=== PATIENT | male | born 1985 | race Caucasian/White ===

== ENCOUNTER 2020-10-19 22:32 | Emergency (ER) | payer BC, SELFPAY ==
[2020-10-19 22:35] VITALS: BP 149/77; PULSE 68; RESP 18; TEMP 37; O2SAT 98; BMI 45.6
[2020-10-20] VITALS: BP 145/95; PULSE 73; RESP 20; TEMP 36.6; O2SAT 97
[2020-10-20] MEDS: Lidocaine 4 % Patch ADH..PATCH 1 PATCH TRANSDERMA (02:31)
[2020-10-20] MEDS: Ketorolac Tromethamine 15 MG/ML VIAL IM (02:31)
[2020-10-20] MEDS: Acetaminophen 325 MG TABLET 975 MG PO (02:31)
[2020-10-20 02:45] LABS: Appearance Urine CLEAR; Color Urine DARK YELLOW; Glucose Urine UA NEG (NEG); Leukocyte Esterase Urine NEG (NEG); Nitrite Urine NEG (NEG); PH 5.5 (5.0-8.0); Specific Gravity - Urine >= 1.030 (1.005-1.025); Urine Blood TRACE (NEG); Urine Ketones NEG (NEG); Urine Protein NEG (NEG-TRACE)
--- NOTE | 2020-10-20 02:46 | ED_ITS ---
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 this afternoon. He denies any radiation into either lower extremity, denies any bowel or bladder dysfunction, denies any saddle anesthesia, and denies any fevers/chills or urinary symptoms. Related Data Previous Rx's Medication Instructions Recorded cyclobenzaprine 10 mg PO BEDTIME PRN #3 tab 10/20/20 ketorolac 10 mg PO Q6H PRN 5 Days #20 tab 10/20/20 Allergies Allergy/AdvReac Type Severity Reaction Status Date / Time No Known Allergies Allergy Unverified 03/26/20 19:30 [No Known Allergies*] Review of Systems Review of Systems: Pertinent positives and negatives as stated in HPI 10 point review of systems is otherwise negative. PMFSH Past Medical History Source: nursing notes reviewed Medical History Obese Social History Social History Alcohol intake: never Smoking Status: Never smoker Use of substances other than those prescribed or required for medical reasons: No Advance Directives: No Physical Exam Vital Signs: Vital Signs: Last Vital Signs Temp 97.9 F 10/20/20 00:00 Pulse 73 10/20/20 00:00 Resp 20 10/20/20 00:00 BP 145/95 H 10/20/20 00:00 Pulse Ox 97 10/20/20 00:00 Body Mass Index 45.6 VITAL SIGNS: Reviewed. GENERAL: Well developed, well nourished, in no acute distress. HEAD: Normocephalic/atraumatic OROPHARYNX: no oral lesions noted, posterior pharynx clear NECK: Supple, no adenopathy LUNGS: Normal breath sounds. No adventitious sounds or accessory muscle use. SpO2<97> CARDIOVASCULAR: Regular rate and rhythm without noted murmurs ABDOMEN: Soft, non-tender, non-distended with bowel sounds. BACK: Muscle spasm noted to left paraspinal, otherwise neurovascularly intact in left lower extremity, no midline vertebral tenderness on palpation NEUROLOGIC: Alert and oriented x 4. Strength and sensation to light touch were grossly intact x 4. Course Course Course Narrative: 35-year-old male with history and clinical presentation consistent with lower back strain and subsequent spasm and low clinical suspicion for renal colic, UTI and a no supporting evidence to suggest cauda equina. Patient provided with combination analgesics and will be re-evaluated. And on re-evaluation patient has had modest improvement of his symptoms. Patient was reassured that he would need to continue with his treatment as well as following up with his primary care provider for re-evaluation and assessment for possible physical therapy should his symptoms persist. MDM - Back Pain/Injury Lab Data Labs: Lab Results 10/20/20 Range/Units 02:37 Urine Color DARK YELLOW Urine Appearance CLEAR Urine pH 5.5 (5.0-8.0) Ur Specific [place] >= 1.030 H (1.005-1.025) Urine Protein NEG (NEG-TRACE) MG/DL Urine Glucose (UA) NEG (NEG) MG/DL Urine Ketones NEG (NEG) MG/DL Urine Blood TRACE (NEG) Urine Nitrite NEG (NEG) Ur Leukocyte Esterase NEG (NEG) Urine RBC 0-2 (0) /HPF Urine WBC 1-4 (0-4) /HPF Ur Squamous Epith Cells 2+ /LPF Urine Bacteria NONE /LPF Urine Mucus 2+ /LPF Discharge Plan Discharge Clinical Impression: Muscle strain, Muscle spasm Patient Disposition: Home, Self-Care Instructions: Muscle Strain (ED), Muscle Spasm (ED) Additional Instructions: 1. Tylenol 1000 mg, por v?a oral, cada 6 horas seg?n sea necesario para controlar el dolor. No exceda los 4000 mg en 24 horas. 2. Parche de lidoca?na, estos est?n disponibles en todos los [facility], apl?quelo en el ?aissatou de m?xima sensibilidad ariana se indica en el empaque exterior. 3. Anum un seguimiento con mello proveedor de atenci?n primaria en los pr?ximos 2-3 d?as para kait reevaluaci?n. No dude en regresar al departamento de emergencias si desarrolla cualquier empeoramiento margaret de angelina s?ntomas que incluya dolor / ardor al orinar o fiebre / escalofr?os. Prescriptions: New ketorolac 10 mg tablet 10 mg PO Q6H PRN (Reason: pain) 5 Days Qty: 20 RF: 0 cyclobenzaprine 10 mg tablet 10 mg PO BEDTIME PRN (Reason: muscle spasm) Qty: 3 RF: 0 Referrals: Physician,None [Primary Care Provider] - 2 days Stand Alone Forms: Work/School Release Print Language: Syrian
[2020-10-20 02:51] LABS: Mucus Urine 2+ /LPF; RBC Urine 0-2 /HPF (0); Squamous Epithelial Cell Urine 2+ /LPF
== END 2020-10-20 04:12 | disposition home or self-care (01) ==
PROVIDERS: Emergency Provider Student in an Organized Health Care Education/Training Program
DX: M62.830 Muscle spasm of back (principal); S39.012A Strain of muscle, fascia and tendon of lower back, initial encounter; X50.0XXA Overexertion from strenuous movement or load, initial encounter; Y93.89 Activity, other specified; Y92.59 Other trade areas as the place of occurrence of the external cause; Y99.0 Civilian activity done for income or pay
CPT/HCPCS: 81001; 96372; 99284; J1885

== ENCOUNTER 2021-03-23 07:44 | Emergency (ER) | payer OTHER, BC, SELFPAY ==
--- NOTE | ~2021-03-23 | XR_ITS ---
EXAMINATION: XR ELBOW, RIGHT CLINICAL INFORMATION: Lifting injury COMPARISON: None TECHNIQUE: AP, lateral, and oblique views of the right elbow. FINDINGS: Bone alignment is normal. No fracture or dislocation is seen. There is question of a small osteophyte versus soft tissue or capsular ossification adjacent to the medial proximal ulna. Joint spaces are otherwise normal. There is no joint effusion. XR/XR elbow RT min 3V IMPRESSION: No acute findings. Question small osteophyte adjacent to the proximal medial ulna.
--- NOTE | ~2021-03-23 | US_ITS ---
EXAMINATION: ULTRASOUND EXTREMITY NONVASCULAR CLINICAL INFORMATION: Question right biceps rupture COMPARISON: None TECHNIQUE: Grayscale and color imaging of the right distal upper arm and proximal forearm. FINDINGS: No fluid collection in or around the biceps muscle or tendon is appreciated. US/US extremity nonvascular IMPRESSION: No abnormality evident by ultrasound.
[2021-03-23 08:32] VITALS: BP 151/74; PULSE 77; RESP 18; TEMP 36.2; O2SAT 99; BMI 47.0
[2021-03-23] MEDS: Ibuprofen 800 MG TABLET PO (10:06)
--- NOTE | 2021-03-23 11:07 | ED.UPPEXIN ---
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 He denies any paresthesias or any other symptoms complaints or injuries at this time. MD complaint: injury to: right, arm and elbow Onset (ago): minute(s) (Prior to arrival) Other injuries: none Place: work Severity: moderate Relieving factors: immobilization Exacerbating factors: other (Extension of the elbow joint) Context: other (Pull/lifting injury) Associated symptoms: denies other symptoms Related Data Previous Rx's Medication Instructions Recorded cyclobenzaprine 10 mg tablet 10 mg PO BEDTIME PRN #3 tab 10/20/20 ketorolac 10 mg tablet 10 mg PO Q6H PRN 5 Days #20 tab 10/20/20 diazepam 5 mg tablet (Valium) 5 mg PO TID PRN #14 tab 03/23/21 naproxen 500 mg tablet 500 mg PO BID PRN #10 tab 03/23/21 oxycodone 5 mg tablet 5 mg PO Q6H PRN #14 tab 03/23/21 Allergies Allergy/AdvReac Type Severity Reaction Status Date / Time No Known Allergies Allergy Verified 03/23/21 08:35 [No Known Allergies*] Review of Systems Review of Systems: Constitutional : No changes in activity, No lethargy, No recent prior head injury, No agitation, No increased fussiness ENT/Mouth : No Ear Pain, No Nasal discharge/drainage Eyes: No Eye Pain, No Swelling, No Redness, No Foreign Body, No Vision Changes Cardiovascular : No Chest Pain, No SOB Respiratory : No Cough Gastrointestinal : No Nausea, No Vomiting, No abdominal Pain Genitourinary : No Dysuria, No Urinary Frequency, No Urinary Incontinence, No Urgency, No Flank Pain Musculoskeletal : + joint pain, No neck stiffness, No back pain/injury Skin : No lacerations Neuro : No unsteady gait, No Paresthesias, No Loss of Consciousness, No altered mental status, No Headache Yes all other systems are reviewed and are negative [facility] Past Medical History Attestation statement: The following information was validated with the patient. Medical History Obese Social History Social History Alcohol intake: never Advance Directives: Yes Advance Directives Information Provided: Yes Advance Directives on File: No Physical Exam Vital Signs: Vital Signs: Last Vital Signs Temp 97.1 F 03/23/21 08:32 Pulse 77 03/23/21 08:32 Resp 18 03/23/21 11:15 BP 151/74 H 03/23/21 08:32 Pulse Ox 99 03/23/21 08:32 Body Mass Index 47.0 vital signs have been reviewed as normal and appeared to be correct. Blood pressure hypertensive 151/74. Heart rate normal. Respiration rate normal. Temperature normal. Oxygen saturation normal. Appearance: Alert. Oriented X3. No acute distress. Head: Normal external exam. Normocephalic. Atraumatic. Eyes: PERRLA. EOMI. Conjunctiva and sclera normal. Eyelids normal. ENT: Pharynx normal. Uvula midline. Moist mucous membranes. Neck: Normal inspection. Neck supple. FROM. No adenopathy. Thyroid Normal. No meningeal signs. No neck mass noted. CVS: Normal heart rate and rhythm. Heart sound normal. Pulses normal throughout. No murmurs/rales/gallops. Respiratory: No respiratory distress. Painless inspiration. Back: Full range of motion noted. No rashes/lesion/induration/fluctuance or signs of infection noted. Skin: Skin warm and dry. Normal skin color. Normal skin turgor. No rashes/lesions/lacerations noted. Extremities: Patient with tenderness to palpation to the right biceps joints at the distal long head aspect and he is unable to completely extend the elbow joint. Although flexion is within normal limits. No obvious ligamentous injury or biceps rupture on exam. Otherwise all other extremity exhibit normal range of motion and nontender. Neuro: Oriented X 3. No motor deficit. No sensory deficit. Reflexes normal. Normal steady gait. No focal neuro deficits noted. Vascular: + radial pulses Normal cap refill. No cyanosis noted to upper extremity nails Course Course Course Narrative: 35-year-old male presenting to the ED with complaints of right biceps pain after he was pulling pallets at work and since then has been having pain and unable to completely flex the elbow joint at the long head of the biceps. Although has full flexion. Therefore x-ray obtained an x-ray revealed no acute findings and the question a small osteophyte adjacent to the proximal medial ulna otherwise no other acute processes were noted. Ultrasound within normal limits they do not see any fluid collection in or around the biceps muscle or tendon. Therefore patient most likely a muscle strain. Will DC home with symptomatic treatment referral to orthopedic and to return if any new or worsening symptoms to follow up with primary care provider and [facility] for his job. Patient understands agrees with this plan. MDM - Extremity Injury (Upper) Medical Records Attestation: I reviewed the patient's medical records. Imaging Data Right elbow x-ray: Attestation: I personally reviewed and interpreted this imaging study as follows: Radiologist's impression: FINDINGS: Bone alignment is normal. No fracture or dislocation is seen. There is question of a small osteophyte versus soft tissue or capsular ossification adjacent to the medial proximal ulna. Joint spaces are otherwise normal. There is no joint effusion. XR/XR elbow RT min 3V IMPRESSION: No acute findings. Question small osteophyte adjacent to the proximal medial ulna. Biceps ultrasound: Attestation: I personally reviewed and interpreted this imaging study as follows: Radiologist's impression: FINDINGS: No fluid collection in or around the biceps muscle or tendon is appreciated.? US/US extremity nonvascular IMPRESSION: No abnormality evident by ultrasound.? Discharge Plan Discharge Clinical Impression: Elbow strain, Biceps muscle strain Patient Disposition: Home, Self-Care Instructions: Muscle Strain (ED) Prescriptions: New naproxen 500 mg tablet 500 mg PO BID PRN (Reason: pain) Qty: 10 RF: 0 diazepam [Valium] 5 mg tablet 5 mg PO TID PRN (Reason: muscle spasm) Qty: 14 RF: 0 oxycodone 5 mg tablet 5 mg PO Q6H PRN (Reason: pain) Qty: 14 RF: 0 No Action ketorolac 10 mg tablet 10 mg PO Q6H PRN (Reason: pain) 5 Days Qty: 20 RF: 0 cyclobenzaprine 10 mg tablet 10 mg PO BEDTIME PRN (Reason: muscle spasm) Qty: 3 RF: 0 Referrals: [facility] [Provider Group] - 1 day (from your job ) Stand Alone Forms: Work/School Release Print Language: Cambodian
[2021-03-23 11:15] VITALS: RESP 18
== END 2021-03-23 11:44 | disposition home or self-care (01) ==
PROVIDERS: Emergency Provider Internal Medicine
DX: S53.401A Unspecified sprain of right elbow, initial encounter (principal); M25.521 Pain in right elbow; X50.0XXA Overexertion from strenuous movement or load, initial encounter; X50.3XXA Overexertion from repetitive movements, initial encounter; X50.9XXA Other and unspecified overexertion or strenuous movements or postures, initial encounter; Y93.9 Activity, unspecified; Y92.9 Unspecified place or not applicable; Y99.0 Civilian activity done for income or pay; Z79.899 Other long term (current) drug therapy
CPT/HCPCS: 73080; 76882; 99284

== ENCOUNTER 2023-09-06 08:55 | Outpatient (REF) | payer BC, SELFPAY ==
[2023-09-06 11:44] LABS: Alanine Aminotransferase 57 U/L (0-40); Albumin Level 4.6 g/dL (3.5-5.0); Alkaline Phosphatase 72 U/L (39-117); Anion Gap 11 (12-20); Aspartate Amino Transferase 30 U/L (5-37); Bilirubin Direct 0.2 mg/dL (0.0-0.5); Bilirubin Total 0.5 mg/dL (0.0-1.0); Blood Urea Nitrogen 14 mg/dL (9-16); Calcium 9.7 mg/dL (8.4-10.2); Carbon Dioxide 26 mmol/L (22-29); Chloride 107 mmol/L (96-108); Cholesterol 171 mg/dL (<200); Estimated Glomerular Filt Rate > 60; Glucose Random 94 mg/dL (60-115); HDL Cholesterol 48 mg/dL (>40); LDL Cholesterol Calculated 109 mg/dL (<100); Potassium 4.7 mmol/L (3.3-5.1); Sodium 139 mmol/L (135-145); Total Protein 8.4 g/dL (6.5-8.0); Triglycerides 70 mg/dL (<150)
[2023-09-06 11:47] LABS: HBS Num1 16.76 mIU/mL (0-7.99); HBc Num1 0.13 S/CO (0.00-0.79); HBsAGNum1 0.37 S/CO (0.00-0.99); HIV AB/AG Nonreactive (Nonreactive); HIV Num 1 0.05 S/CO (0.00-0.99); Hepatitis B Core Antibody Nonreactive (Nonreactive); Hepatitis B Surface Antigen Negative (Negative); ~HepC Num1 0.14 S/CO (0.00-0.79); ~Hepatitis B Surface Antibody REACTIVE (Nonreactive); ~Hepatitis C Antibody Nonreactive (Nonreactive)
[2023-09-06 12:48] LABS: Estimated Average Glucose 120 mg/dL; Hemoglobin A1c % 5.8 % (<6.0)
[2023-09-08 09:29] LABS: RPR Rapid Plasma Reagin NON-REACTIVE (NON-REACTIVE)
== END 2023-09-06 08:56 | disposition home or self-care (01) ==
LOC: HO.HHCL 08:55
PROVIDERS: Visit Provider Nurse Practitioner Primary Care
DX: Z00.00 Encounter for general adult medical examination without abnormal findings (principal); Z13.220 Encounter for screening for lipoid disorders; Z11.4 Encounter for screening for human immunodeficiency virus [HIV]; Z13.6 Encounter for screening for cardiovascular disorders; R03.0 Elevated blood-pressure reading, without diagnosis of hypertension; Z20.2 Contact with and (suspected) exposure to infections with a predominantly sexual mode of transmission
CPT/HCPCS: 36415; 80048; 80061; 80076; 83036; 84443; 86592; 86704; 86706; 86803; 87340; 87389

== ENCOUNTER 2024-02-13 08:58 | Outpatient (REF) | payer BC, SELFPAY ==
[2024-02-13 11:51] LABS: Anion Gap 14 (12-20); Blood Urea Nitrogen 17 mg/dL (9-16); Calcium 9.6 mg/dL (8.4-10.2); Carbon Dioxide 27 mmol/L (22-29); Chloride 104 mmol/L (96-108); Estimated Glomerular Filt Rate > 60; Glucose Random 97 mg/dL (60-115); Potassium 4.4 mmol/L (3.3-5.1); Sodium 141 mmol/L (135-145)
[2024-02-13 12:00] LABS: Creatinine Urine 251.99 mg/dL; Microalbum/Creatinine Ratio Ur 3.1 ug/mg cr (<30)
== END 2024-02-13 08:59 | disposition home or self-care (01) ==
LOC: HO.HHCL 08:58
PROVIDERS: Visit Provider Nurse Practitioner Primary Care
DX: I10 Essential (primary) hypertension (principal)
CPT/HCPCS: 36415; 80048; 82043; 82570

== ENCOUNTER 2024-12-26 09:02 | Outpatient (RCR) | payer OTHER, BC, SELFPAY | END 2024-12-26 09:19 | disposition home or self-care (01) | LOC: HO.OT 09:02 | PROVIDERS: PCP Nurse Practitioner Primary Care; Visit Provider Nurse Practitioner Primary Care | DX: M79.632 Pain in left forearm (principal); S59.912D Unspecified injury of left forearm, subsequent encounter; M25.522 Pain in left elbow | CPT/HCPCS: 97035; 97110; 97140; 97166; 97535 ==

== ENCOUNTER 2025-02-07 08:11 | Outpatient (REF) | payer OTHER, BC, SELFPAY ==
--- NOTE | ~2025-02-07 | XR_ITS ---
EXAMINATION: XR ELBOW, LEFT CLINICAL INFORMATION: M25.529 - Pain in unspecified elbow COMPARISON: None available. TECHNIQUE: AP, lateral, and oblique views of the left elbow. FINDINGS: There is no fat pad displacement. No fracture lines are identified. Joint spaces are preserved. There are no osteophytes. XR/XR elbow LT min 3V IMPRESSION: Unremarkable left elbow. Electronically signed by: Jose Hendrix MD 02/07/2025 10:20 AM EDT
== END 2025-02-07 08:12 | disposition home or self-care (01) ==
LOC: HO.HOSX 08:11
PROVIDERS: Visit Provider Physician Assistant
DX: S46.212D Strain of muscle, fascia and tendon of other parts of biceps, left arm, subsequent encounter (principal); M25.522 Pain in left elbow; X50.0XXD Overexertion from strenuous movement or load, subsequent encounter
CPT/HCPCS: 73080; 99202

== ENCOUNTER 2025-02-07 10:00 | Outpatient (AMB) | payer OTHER, SELFPAY ==
--- NOTE | 2025-02-07 10:03 | A.OFFVIS_ITS ---
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 While at work on 10/23/24 he was trying to lift heavy boxes with immediate onset of pain. He explains that her felt a springing or popping sensation on the lateral aspect of his elbow. He was seen at a Walk In the same day as his injury. He was referred for physical therapy and completed about 1-2 months of sessions. He feels that physical therapy did help him but his pain is now intermittent - worsened with lifting or reaching. Denies numbness and tingling. Reports history of Right Biceps Tendon tear, since this has healed he does not have the same strength on his dominant arm - because of this injury he has started to use his left arm as his dominant arm. With the current injury he is struggling with strength. 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 Paz Bolivar is a 39 year old right hand dominant, Cypriot speaking, male who presents today for a evaluation of his left elbow. While at work on 10/23/24 he was trying to lift heavy boxes with immediate onset of pain. He explains that her felt a springing or popping sensation on the lateral aspect of his elbow. He was seen at a Walk In the same day as his injury. He was referred for physical therapy and completed about 1-2 months of sessions. He feels that physical therapy did help him but his pain is now intermittent - worsened with lifting or reaching. Denies numbness and tingling. Reports history of Right Biceps Tendon tear, since this has healed he does not have the same strength on his dominant arm - because of this injury he has started to use his left arm as his dominant arm. With the current injury he is struggling with strength. 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 [facility] Medical History Obese Social History Alcohol intake: never Physical Exam Const General: cooperative, healthy appearing and no acute distress Resp Effort & Inspection: normal respiratory effort and able to speak in complete sentences Extrem Other: Left elbow: Normal to inspection. No ecchymosis, erythema, or edema. No tenderness to palpation over the olecranon. No tenderness to the medial or lateral epicondyle. Forward to 5 strength with resisted pronation and supination. Difficulty palpating the distal biceps tendon. No evidence of Chandler deformity. NVI. Psych Appearance: grossly normal Mental Status: mental status grossly normal Attitude: cooperative Assessment & Plan Assessment & Plan (1) Rupture of left distal biceps tendon: Code(s): S46.212A - Strain of muscle, fascia and tendon of other parts of biceps, left arm, initial encounter Category: Medical Plan Mr. Paz Bolivar is a 39 year old right hand dominant, Cypriot speaking, male who presents today for a evaluation of his left elbow. While at work on 10/23/24 he was trying to lift heavy boxes with immediate onset of pain. He explains that her felt a springing or popping sensation on the lateral aspect of his elbow. He was seen at a Walk In the same day as his injury. He was referred for physical therapy and completed about 1-2 months of sessions. He feels that physical therapy did help him but his pain is now intermittent - worsened with lifting or reaching. Denies numbness and tingling. Reports history of Right Biceps Tendon tear, since this has healed he does not have the same strength on his dominant arm - because of this injury he has started to use his left arm as his dominant arm. With the current injury he is struggling with strength. 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 While in the office today, we discussed the role of MRI imaging as the patient has tried and failed other conservative treatments i.e. oral anti-inflammatories and physical therapy. I have placed the order while in the office today to further evaluate the integrity of the left elbow and surrounding structures. He will follow up after the MRIs obtained, sooner if needed. A work note has been provided to the patient stating that he may return to work full-time regular duty as he has been. However, he is pending MRI imaging and work status will be evaluated after MRIs obtained. X-rays of the left elbow which were obtained while in the office today and were reviewed by me, Geovanna Sam PA-C, revealed negative for any acute fracture or dislocation. Orders: Orders 2 XR elbow LT min 3V Today M25.529 - Pain in unspecified elbow Medications: Discontinued cyclobenzaprine Discontinued Reason: Patient no longer taking 10 mg PO BEDTIME PRN 3 tabs 0RF muscle spasm ketorolac Patient received IM Toradol in the emergency department. Discontinued Reason: Patient Completed Course 10 mg PO Q6H 5 days PRN 20 tabs 0RF pain diazepam (Valium) Discontinued Reason: Patient no longer taking 5 mg PO TID PRN 14 tabs 0RF muscle spasm naproxen Discontinued Reason: Patient no longer taking 500 mg PO BID PRN 10 tabs 0RF pain oxycodone Discontinued Reason: Patient no longer taking 5 mg PO Q6H PRN 14 tabs 0RF pain Coding Level of Care Code New Pt Level 3 (59163) Diagnoses Rupture of left distal biceps tendon S46.212A
--- OUTSIDE RECORDS SUMMARY | 2025-02-07 10:11 | XMS_ITS | Clinical Summary ---
Author Organization [employer] Address [address] [facility] 7t [place] [address] Care Team Providers Care Government Affairs Director Name Role Phone Carlotta Barfield ISSAC Primary Care Provider [phone] Allergies No known active allergies Medications Tirzepatide-Weig ht Management (Zepbound) 2.5 MG/0.5ML solution auto-injectorInd ications:Morbid obesity (CMS/HCC),Class 3 severe obesity with serious comorbidity and body mass index (BMI) of 40.0 to 44.9 in adult, unspecified obesity type INJECT 2.5 MG SUBCUTANEOUS EVERY 7 DAYS 2 mL 2 4 Active lisinopril-hydro CHLOROthiazide 20-12.5 MG tabletIndication s:Essential hypertension Take 1 tablet by mouth Once per day. 90 tablet 1 5 025 Active tiZANidine (Zanaflex) 2 MG tablet Take 1 tablet (2 mg) by mouth every 6 (six) hours if needed for muscle spasms for up to 10 days. 20 tablet 5 Active Active Problems Problem Noted Date Diagnosed Date Class 3 severe obesity with serious comorbidity and body mass index (BMI) of 45.0 to 49.9 in adult 05/01/2024 Essential hypertension 09/04/2023 Overview (01/29/2024): Home BP 130/80's Cont Lisinopril-hydrochlorothiazide 20-12.5mg At/near goal today, </= 130/80. Continue to encourage low salt diet, regular exercise, home BP monitoring, compliance with medications. Call clinic if BP is frequently >150/90 Go to ED/call 911 if > 170/100 and having sx such as JACKSON, visual changes, chest pain, SOB Last renal function: Lab Results Component Value Date GLUCOSE 94 09/06/2023 NA 139 09/06/2023 K 4.7 09/06/2023 CO2 26 09/06/2023 CL 107 09/06/2023 BUN 14 09/06/2023 CREATININE 0.98 09/06/2023 EGFR >60 09/06/2023 No results found for: MICROALBCREA No results found for: MICROALBCREU Vascular insufficiency 11/27/2018 Obesity (BMI 30-39.9) 11/27/2018 Carpal tunnel syndrome 08/20/2018 Hand pain 07/16/2018 Lumbar back pain 07/16/2018 Morbid obesity 11/27/2017 Encounters Date Type Department Care Team Description 12/30/[address] [address] Carlotta Barfield ANP Co-Pay 12/27/2024 11:30 AM EDT Office Visit [address] [address] Carlotta Barfield ANP Elbow pain, left (Primary Dx); Forearm injuries, left, subsequent encounter 12/27/2024 Travel 12/25/[address] [address] Carlotta Barfield ANP Chart Prep 12/18/2024 Patient Outreach [address] [address] Carlotta Barfield ANP Care Coordination (CHW outreach for SDOH food needs-referral completed /) 12/18/2024 Patient Outreach [address] [address] Carlotta Barfield ANP Pre-visit Planning (SDOH screening positive and Tobacco screening negative) 12/12/[address] [address] Carlotta Barfield ANP Follow up appt 11/08/2024 11:00 AM EDT Office Visit [facility] [address] [place] [address] [place], Fanny, AUTOMOTIVE QUALITY MANAGER Forearm injuries, left, subsequent encounter (Primary Dx) 11/08/2024 Telephone [facility] [address] [facility] [place] [address] Carlotta Barfield ANP Letter for School/Work 11/07/2024 Orders Only [facility] [address] [facility] [place] [address] Haydee Green MD Forearm injuries, left, subsequent encounter (Primary Dx); Elbow pain, left from Last 3 Months Immunizations Immunization Administration Dates Next Due Tdap 05/11/2021 Family History Medical History Relation Name Comments Diabetes Other Hypertension Other Relation Name Status Comments Other Social History Tobacco Use Types Packs/Day Years Used Date Smoking Tobacco: Never Passive Smoke Exposure: Never Smokeless Tobacco: Never Tobacco Cessation:Counseling Given: Not Answered Alcohol Use Standard Drinks/Week Comments Yes 0 (1 standard drink = 0.6 oz pur e alcohol) oca Depression Answer Date Recorded Patient Health Questionnaire-9 Score 4 05/17/2024 Patient Health Questionnaire-9 Score 4 05/17/2024 Last PHQ-9: Questionnaire Data Not on file 1 07/17/2023 Housing Stability Answer Date Recorded What is your housing situation today? I have griselda mcneal 12/18/[address] you li ve. Do you have problems with any of the following? None of the above 12/18/2024 Food Insecurity Answer Date Recorded Within the past 12 months, y ou worried that your food would run out before you got money to buy more: Sometimes True 2024 Within the past 12 months,th e food you bought just didn't last and you didn't have enough money to get more: Sometimes True 12/18/2024 Transportation Answer Date Recorded In the past 12 months, has l ack of transportation kept you from medical appts, meetings, work or from getting things needed for daily living? No 12/18/2024 Utilities Answer Date Recorded In the past 12 months, has t he electric, gas, oil or water company threatened to shut off services in your home? No 12/18/2024 Depression Answer Date Recorded Patient Health Questionnaire-2 Score 2 05/17/2024 Internet Access Answer Date Recorded Internet Access Q1 Yes 02/07/2025 Internet Access Q2 Not on file 02/07/2025 Sex and Gender Information Value Date Recorded Sex Assigned at Male 05/09/2022 10:33 AM EDT Legal Sex Male 10:33 AM EDT Gender Identity Male 05/09/2022 10:33 AM EDT Sexual Orientation Straight 05/09/2022 10 :33 AM EDT Last Filed Vital Signs Vital Sign Reading Time Taken Comments Blood Pressure 122/78 12/27/2024 11:32 AM EDT Pulse 78 12/27/2024 11:32 AM EDT Temperature 36.9 C (98.4 F) 12/27/2024 11:32 AM EDT Respiratory Rate 18 12/27/2024 11:32 AM EDT Oxygen Saturation 99% 10/23/2024 3:07 PM EDT Inhaled Oxygen Concentration - - Weight 135 kg (298 lb 4 oz) 12/27/2024 11:32 AM EDT Height 172.7 cm (5' 8 ) 12/27/2024 11:32 AM EDT Body Mass Index 45.35 12/27/2024 11:32 AM EDT Plan of Treatment Upcoming Encounters Date Type Department Care Team (Late st Contact Info) Description 04/01/2025 2:15 PM EDT Office Visit [facility] [address] [place], [place] [phone] Carlotta Barfield, ANP [address] [place] [address] Health Maintenance Due Date Last Done Comments Family Planning (PISQ) 2001 HPV Vaccines (1 - Male 3-dos e series) 2001 Hepatitis B Vaccines (1 of 3 - 19+ 3-dose series) 2005 COVID-19 Vaccine (4 - 2023-2 5 season) 2024 07/24/2021, 01/06/2021, 12/16/2020 Influenza Vaccine (#1) 2025 Depression Screening 05/17/2025 05/17/2024, 05/17/2024 Alcohol/Substance Use Screening 07/19/2025 07/19/2024 SDOH Screening 12/18/2025 12/18/2024 Disability Screening 12/27/2025 12/27/2024 Tobacco Screening 01/08/2026 01/08/2025 Lipid Panel 09/06/2028 09/06/2023, 03/09/2021 DTaP/Tdap/Td Vaccines (2 - T d or Tdap) 05/11/2031 05/11/2021 Zoster Vaccines (1 of 2) 2036 RSV Patients and Patients Aged 60 years or older (1 - 1-dose 75+ series) 2061 HIV Screening Completed 09/06/2023, 03/09/2021 Hepatitis C Screening Completed 09/06/2023 , 03/09/2021 HIB Vaccines Aged Out No longer eligi ble based on patient's age to complete this topic Hepatitis A Vaccines Aged Out No long er eligible based on patient's age to complete this topic IPV Vaccines Aged Out No longer eligi ble based on patient's age to complete this topic Meningococcal B Vaccine Aged Out No l onger eligible based on patient's age to complete this topic Meningococcal Vaccine Aged Out No jamar kathrin eligible based on patient's age to complete this topic Pneumococcal Vaccine: Pediatrics (0 to 5 Years) and At-Risk Patients (6 to 49) Years Aged Out No longer eligible b ased on patient's age to complete this topic RSV under 20 months Aged Out No longe r eligible based on patient's age to complete this topic Rotavirus Vaccines Aged Out No longer eligible based on patient's age to complete this topic Procedures Procedure Name Priority Date/Time Associated Diagnosis Comments LIPID PANEL, STANDARD Routine 09/06/2023 8:58 AM EST Lipid screening HEPATITIS C AB W/REFL TO HCV RNA, QN, PCR Routine 09/06/2023 8:45 AM EST Routine screening for STI (sexually transmitted infection) HIV 1/2 ANTIGEN/ANTIBODY, FOURTH GENERATION W/RFL Routine 09/06/2023 8:45 AM EST Routine screening for STI (sexually transmitted infection) from Last 3 Months or Most Recently Relevant to Health Maintenance Results * (ABNORMAL) Lipid Panel, Standard (09/06/2023 8:58 AM EST) Triglycerides 70 <150 mg/dL [facility] Comment:Desirable Triglyceri de: less than 150 mg/dLBorderline High Triglyceride 150-199 mg/dLHigh Triglyceride: 200-499 mg/dLVery High Triglyceride: greater than or equal to 5OO mg/dL Cholesterol 171 <200 mg/dL [facility] Comment:Desirable Cholestero l: less than 200 mg/dLBorderline High Cholesterol: 200-239 mg/dLHigh Cholesterol: greater than 239 mg/dL LDL Cholesterol Calculated 109(H) <100 mg/dL [facility] Comment:Desirable LDL: less than 100 mg/dLNear Optimal/Above Optimal LDL: 110- 129 mg/dLBorderline High LDL: 130-159 mg/dLHigh LDL: 160-189 mg/dLVery High LDL: greater than or equal to 190 mg/dL HDL Cholesterol 48 >40 mg/dL [facility] Comment:Desirable HDL: great er than 40 mg/dL Note: This HDL assay may give artificially low results in patients with liver disease. Blood Venous blood specimen / Unknown 09/06/2023 8:58 AM EST 09/06/2023 11:09 AM EST Carlotta Barfield [facility] BLOOD ORDERABLES Final Resul t Performing Organization Address [facility] de Phone Number [facility] [address] [place] [phone] * Hepatitis C Antibody with Reflex to HCV, RNA, Quantitative, Real-Time PCR (09/06/2023 8:45 AM EST) Hepatitis C Antibody Nonreactive Nonreactive [facility] Comment:Antibodies to HCV no t detected; does not exclude early acuteHCV infection. Blood Venous blood specimen / Unknown 09/06/2023 8:45 AM EST 09/06/2023 11:09 AM EST us Carlotta Barfield [facility] LAB BLOOD ORDERABLES Final Resul t Performing Organization Address [facility] Co de Phone Number [facility] [address] [place] [phone] * HIV-1/2 Antigen and Antibodies, Fourth Generation, with Reflexes (09/06/2023 8:45 AM EST) HIV AB/AG Nonreactive Nonreactive [facility] Comment:HIV-1 p24 Ag and/or HIV-1/HIV-2 Ab not detected.A test result that is nonreactive does not exclude thepossibility of exposure to or infection with HIV-1 and/orHIV-2. Nonreactive results in this assay for individualswith prior exposure to HIV-1 and/or HIV-2 may be due toantigen and antibody levels that are below the limit ofdetection of this assay.The [employer] HIV Ag/Ab Combo assay result andsupplemental assay results should be interpreted inconjunction with the patient's clinical presentation,history and other laboratory results. If the results areinconsistent with clinical evidence, additional testing issuggested to confirm the result. Blood Venous blood specimen / Unknown 09/06/2023 8:45 AM EST 09/06/2023 11:09 AM EST [facility] LAB BLOOD ORDERABLES Final Resul t [facility] [address] [place] [phone] from Last 3 Months or Most Recently Relevant to Health Maintenance Insurance [facility] PPO GENERIC TPL Care Teams Government Affairs Director Relationship Specialty Start Date End Date Carlotta Barfield ANP [address] [place] [phone] PCP - General Family Medicine 05/26/20
--- OUTSIDE RECORDS SUMMARY | 2025-02-07 10:11 | XMS_ITS | Clinical Summary ---
Author Organization [facility] Address [address] [place] [address] [place] [phone] Phone Support Name Relationship Address Phone Flaquita Bauer Personal Relationship [address] [place] [address] Danelle Jarvis Personal Relationship [address] [place] [address] Care Team Providers Care Ethylene Plant Operator Name Role Phone Pcp, Not Required Primary Care Provider Unavaila ble Allergies No known active allergies Medications No known medications Active Problems No known active problems Social History Tobacco Use Types Packs/Day Years Used Date Smoking Tobacco: Never Assessed Education Answer Date Recorded Are you interested in more education? Not on linda e 11/04/2022 Are you concerned about learning? Not on file 11/04/2022 No 11/04/2022 No 11/04/2022 Digital Access Answer Date Recorded No 12/03/2022 No 12/03/2022 No 12/03/2022 Reliable internet access at home? Not on file 12/03/2022 Device with a working camera? Not on file Sex and Gender Information Value Date Recorded Sex Assigned at Not on file Legal Sex Male 4:18 PM EDT Gender Identity Not on file Sexual Orientation Not on file Last Filed Vital Signs Vital Sign Reading Time Taken Comments Blood Pressure 145/74 09/19/2017 4:46 PM EDT Pulse 84 09/19/2017 4:46 PM EDT Temperature 36.7 C (98.1 F) 09/19/2017 4:22 PM EDT Respiratory Rate 16 09/19/2017 4:46 PM EDT Oxygen Saturation 100% 09/19/2017 4:46 PM EDT Inhaled Oxygen Concentration - - Weight - - Height - - Body Mass Index - - Plan of Treatment Health Maintenance Due Date Last Done Comments Adult Td,Tdap Booster 1985 LIPID PANEL 1986 DEPRESSION SCREENING 1998 SMOKING Hx and SMOKELESS TOB ACCO SCREENING 1999 HEPATITIS C SCREENING 2004 HIV ONE-TIME SCREENING (18-6 5 YEARS) 2004 COVID-19 VACCINE (2023-2 5 season) 2024 HEPATITIS A VACCINES Aged Out No long er eligible based on patient's age to complete this topic HIB VACCINES Aged Out No longer eligi ble based on patient's age to complete this topic MENINGOCOCCAL VACCINES (ACWY) Aged Out No longer eligible based on patient's age to complete this topic MENINGOCOCCAL VACCINES (B) Aged Out N o longer eligible based on patient's age to complete this topic PNEUMOCOCCAL VACCINES (0-49 years) Aged Out No longer eligible based on patient's age to complete this topic Medical Devices Not on file Insurance R24 [address] [place], [place] [id number] [facility] C3 ACO R24 [place] [id number] [facility] C3 ACO * Guarantor: Rahul oBlivar Account Type Relation to Patient Date of Phone Billing Address Personal/Family Self 1985 [address] [place] [address] [facility] C3 ACO [facility] C3 ACO [facility] C3 ACO * Guarantor: Rahul Bolivar Account Type Relation to Patient Date of Phone Billing Address Personal/Family Self 1985 [address] [place] [address] [facility] C3 ACO [facility] C3 ACO [id number] [place] [address] C3 ACO * Guarantor: Rahul Bolivar Account Type Relation to Patient Date of Phone Billing Address Personal/Family Self 1985 [address] [place] [address] [facility] C3 ACO Care Teams Ethylene Plant Operator Relationship Specialty Start Date End Date Pcp, Not Required [address] [place] [phone] PCP - General 09/19/17 Additional Source Comments The information contained in this document represents components of the legal health record. It is not the complete legal health record.[facility]
== END 2025-02-07 10:48 | disposition home or self-care (01) ==
LOC: HO.HOS 10:00
PROVIDERS: PCP Nurse Practitioner Primary Care; Visit Provider Physician Assistant
DX: S46.212A Strain of muscle, fascia and tendon of other parts of biceps, left arm, initial encounter (principal)
CPT/HCPCS: 99203

== ENCOUNTER → 2025-02-07 10:02 | Outpatient (BNV) | payer OTHER, SELFPAY | PROVIDERS: Visit Provider Radiology Diagnostic Radiology | DX: M25.522 Pain in left elbow (principal) | CPT/HCPCS: 73080 ==

== ENCOUNTER 2025-03-06 19:28 | Outpatient (REF) | payer OTHER, SELFPAY ==
--- NOTE | ~2025-03-06 | MR_ITS ---
CLINICAL HISTORY: S46.212A - Strain of muscle, fascia and tendon of other parts of biceps,... Exam: MRI of the left elbow without intravenous contrast. Comparison: Radiographs February 07, 2025. Findings: There is thickening and heterogeneity of the distal biceps tendon as it inserts upon the radial tuberosity. There is prominent peritendinous edema with a small amount of peritendinous fluid as well. No disruption of the fibers identified. The lacertus fibrosus is intact. No muscle edema or atrophy. Brachialis tendon is intact although there is mild peritendinous edema with subtle increased signal intensity within the distal brachialis tendon. Triceps tendon is unremarkable. No fracture or bone marrow signal alteration identified. Common flexor tendons and common extensor tendons are unremarkable. Ulnar collateral ligament and radial collateral ligaments are intact. No mass or edema within the cubital tunnel. Signal intensity of the ulnar nerve is within normal limits. Physiologic amount of fluid within the elbow joint. No focal cartilage defects. Impression: 1. Grade 1 strain of the distal biceps tendon with peritendinous edema. No tear identified. 2. Grade 1 stranding of the distal brachialis tendon as well without tendon tear. This document has been electronically signed by: Murali Tang MD on 03/07/2025 09:53:57
--- OUTSIDE RECORDS SUMMARY | 2025-03-06 19:34 | XMS_ITS | Clinical Summary ---
Author Organization [employer] Address [address] [facility] 7t [place] [address] Care Team Providers Care Macerator Operator Name Role Phone Carlotta Barfield ISSAC Primary Care Provider [phone] Allergies No known active allergies Medications Tirzepatide-Weig [...] Type Department Care Team Description 12/30/[address] [address] Carlotta Barfield ANP Co-Pay 12/27/2024 11:30 AM EDT Office Visit [address] [address] Carlotta Barfield ANP Elbow pain, left (Primary Dx); Forearm injuries, left, subsequent encounter 12/27/2024 Travel 12/25/[address] [address] Carlotta Barfield ANP Chart Prep 12/18/2024 Patient Outreach [address] [address] Carlotta Barfield ANP Care Coordination (CHW outreach for SDOH food needs-referral completed /) 12/18/2024 Patient Outreach [address] [address] Carlotta Barfield ANP Pre-visit Planning (SDOH screening positive and Tobacco screening negative) 12/12/[address] [address] Carlotta Barfield ANP Follow up appt from Last 3 Months Immunizations Immunization Administration [...] Description 04/01/2025 2:15 PM EDT Office Visit [facility] [address] [place], [place] [phone] Carlotta Barfield, ANP [address] [place], [place] [phone] Health Maintenance Due Date Last Done Comments Family Planning (PISQ) 2001 HPV Vaccines (1 - Male 3-dos e series) 2001 Hepatitis B Vaccines (1 of 3 - 19+ 3-dose series) 2005 COVID-19 Vaccine (2023-2 5 season) 2024 07/24/2021, 01/06/2021, 12/16/2020 Influenza [...] 8:58 AM EST) Triglycerides 70 <150 mg/dL [facility] Comment:Desirable Triglyceri de: less than 150 mg/dLBorderline High Triglyceride 150-199 mg/dLHigh Triglyceride: 200-499 mg/dLVery High Triglyceride: greater than or equal to 5OO mg/dL Cholesterol 171 <200 mg/dL [facility] Comment:Desirable Cholestero l: less than 200 mg/dLBorderline High Cholesterol: 200-239 mg/dLHigh Cholesterol: greater than 239 mg/dL LDL Cholesterol Calculated 109(H) <100 mg/dL [facility] Comment:Desirable LDL: less than 100 mg/dLNear Optimal/Above Optimal LDL: 110- 129 mg/dLBorderline High LDL: 130-159 mg/dLHigh LDL: 160-189 mg/dLVery High LDL: greater than or equal to 190 mg/dL HDL Cholesterol 48 >40 mg/dL [facility] Comment:Desirable HDL: great er than 40 mg/dL Note: This HDL assay may give artificially low results in patients with liver disease. Blood Venous blood specimen / Unknown 09/06/2023 8:58 AM EST 09/06/2023 11:09 AM EST Carlotta Barfield [facility] BLOOD ORDERABLES Final Resul t Performing Organization Address [facility] Co de Phone Number [facility] [address] [place] [phone] * Hepatitis C Antibody with Reflex to HCV, RNA, Quantitative, Real-Time PCR (09/06/2023 8:45 AM EST) Hepatitis C Antibody Nonreactive Nonreactive [facility] Comment:Antibodies to HCV no t detected; does not exclude early acuteHCV infection. Blood Venous blood specimen / Unknown 09/06/2023 8:45 AM EST 09/06/2023 11:09 AM EST Carlotta Barfield [facility] BLOOD ORDERABLES Final Resul t Performing Organization Address [facility] de Phone Number [facility] [address] [place] [phone] * HIV-1/2 Antigen and Antibodies, Fourth Generation, with Reflexes (09/06/2023 8:45 AM EST) HIV AB/AG Nonreactive Nonreactive [facility] Comment:HIV-1 p24 Ag and/or HIV-1/HIV-2 Ab not detected.A test result that is nonreactive does not exclude thepossibility of exposure to or infection with HIV-1 and/orHIV-2. Nonreactive results in this assay for individualswith prior exposure to HIV-1 and/or HIV-2 may be due toantigen and antibody levels that are below the limit ofdetection of this assay.The [email or web address] HIV Ag/Ab Combo assay result andsupplemental assay results should be interpreted inconjunction with the patient's clinical presentation,history and other laboratory results. If the results areinconsistent with clinical evidence, additional testing issuggested to confirm the result. Blood Venous blood specimen / Unknown 09/06/2023 8:45 AM EST 09/06/2023 11:09 AM EST Carlotta Barfield ISSAC LAB BLOOD ORDERABLES Final Resul t [facility] [address] [place] [phone] from Last 3 Months or Most Recently Relevant to Health Maintenance Insurance BC[employer] PPO GENERIC TPL Care Teams Macerator Operator Relationship Specialty Start Date End Date Carlotta Barfield ANP [address] [place] [phone] PCP - General Family Medicine 05/26/20
--- OUTSIDE RECORDS SUMMARY | 2025-03-06 19:34 | XMS_ITS | Encounter Summary ---
Author Organization [employer] Address [address] [facility] 7t [place] [address] Care Team Providers Care Foundry Supervisor Name Role Phone Carlotta Barfield ISSAC Primary Care Provider [phone] Reason for Visit * Reason Comments Med Refill Encounter Details Date Type Department Care Team ([facility] st Contact Info) Description 10/25/2024 Refill [facility] [address] [place] [phone] Adán Nobles MD [address] [place] [address] Social History Tobacco Use Types Packs/Day Years Used Date Smoking Tobacco: Never Passive Smoke Exposure: Never Smokeless Tobacco: Never Alcohol Use Standard Drinks/Week Comments Yes 0 (1 standard drink = 0.6 oz pur e alcohol) oca Depression Answer Date Recorded Patient Health Questionnaire-9 Score 4 05/17/2024 Patient Health Questionnaire-9 Score 4 05/17/2024 Last PHQ-9: Questionnaire Data Not on file 1 07/17/2023 Housing Stability Answer Date Recorded What is your housing situation today? I have griselda mcneal 08/24/[address] you li ve. Do you have problems with any of the following? None of the above 08/24/2023 Food Insecurity Answer Date Recorded Within the past 12 months, y ou worried that your food would run out before you got money to buy more: Often true 08/24/2023 Within the past 12 months,th e food you bought just didn't last and you didn't have enough money to get more: Often true Transportation Answer Date Recorded In the past 12 months, has l ack of transportation kept you from medical appts, meetings, work or from getting things needed for daily living? No 08/24/2023 Utilities Answer Date Recorded In the past 12 months, has t he electric, gas, oil or water company threatened to shut off services in your home? No 08/24/2023 Depression Answer Date Recorded Patient Health Questionnaire-2 Score 2 05/17/2024 Internet Access Answer Date Recorded Internet Access Q1 Yes 04/18/2024 Internet Access Q2 I do not want or need it 04/09 Sex and Gender Information Value Date Recorded Sex Assigned at Male 05/09/2022 10:33 AM EDT Legal Sex Male 10:33 AM EDT Gender Identity Male 05/09/2022 10:33 AM EDT Sexual Orientation Straight 05/09/2022 10 :33 AM EDT documented as of this encounter Plan of Treatment Upcoming Encounters Date Type Department Care Team (Late st Contact Info) Description 04/01/2025 2:15 PM EDT Office Visit [facility] [address] [place] [address] Carlotta Barfield ANP [address] [place] [address] documented as of this encounter Visit Diagnoses Not on filedocumented in this encounter Additional Health Concerns Assessment Noted Time PHQ-9 Depression Total Score: 4 05/17/20 24 2:06 PM EST documented as of this encounter Care Teams Foundry Supervisor Relationship Specialty Start Date End Date Carlotta Barfield ANP [address] [place] [address] PCP - General Family Medicine 05/26/20 documented as of this encounter
--- OUTSIDE RECORDS SUMMARY | 2025-03-06 19:35 | XMS_ITS | Encounter Summary ---
Author Organization [employer] Address [address] [facility] 7t [place] [address] Care Team Providers Care Storeroom Supervisor Name Role Phone Carlotta Barfield Primary Care Provider [phone] Encounter Details Date Type Department Care Team ([facility] st Contact Info) Description 06/13/[address] [facility] [address] [place] [address] Carlotta Barfield ANP [address] [place] [address] Social History Tobacco Use Types Packs/Day Years [...] Description 04/01/2025 2:15 PM EDT Office Visit [facility] [address] [place] [address] Carlotta Barfield ANP 230 [place] [address] documented as of this encounter Visit Diagnoses Not on filedocumented in this encounter Additional Health Concerns Assessment Noted Time PHQ-9 Depression Total Score: 4 05/17/20 24 2:06 PM EST documented as of this encounter Care Teams Storeroom Supervisor Relationship Specialty Start Date End Date Carlotta Barfield ANP [address] [place] [phone] PCP - General Family Medicine 05/26/20 documented as of this encounter
--- OUTSIDE RECORDS SUMMARY | 2025-03-06 19:35 | XMS_ITS | Clinical Summary ---
Author Organization [facility] Address [address] [place] [address] [place] [phone] Phone Support Name Relationship Address Phone Flaquita Bauer Personal Relationship [address] [place] [address] Danelle Jarvis Personal Relationship [address] [place] [address] Care Team Providers Care Director Cost Name Role Phone Pcp, Not Required Primary [...] 2004 COVID-19 VACCINE (2023-2 5 season) 2024 INFLUENZA VACCINE (#1) 2025 HEPATITIS A VACCINES Aged Out No long [...] topic Medical Devices Not on file Insurance * Guarantor: Rahul Bolivar Account Type Relation to Patient Date of Phone Billing Address Personal/Family Self 1985 [address] [place] [address] [facility] C[facility] A[employer] [address] [place], [place] [address] [facility] [employer] A[employer] * Guarantor: Rahul Bolivar Account Type Relation to Patient Date of Phone Billing Address Personal/Family Self 1985 [address] [place] [address] [facility] C[facility] A[employer] * Guarantor: Rahul Bolivar Account Type Relation to Patient Date of Phone Billing Address Personal/Family Self 1985 [address] [place] [address] [facility] C[facility] ACO [facility] * Guarantor: Rahul Bolivar Account Type Relation to Patient Date of Phone Billing Address Personal/Family Self 1985 [address] [place] [address] [facility] C[facility] A[employer] * Guarantor: Rahul Bolivar Account Type Relation to Patient Date of Phone Billing Address Personal/Family Self 1985 [address] [place] [address] [facility] [employer] A[employer] * Guarantor: Rahul Bolivar Account Type Relation to Patient Date of Phone Billing Address Personal/Family Self 1985 [address] [place] [address] [facility] [employer] [facility] * Guarantor: Rahul Bolivar Account Type Relation to Patient Date of Phone Billing Address Personal/Family Self 1985 [address] [place] [address] [facility] Care Teams Director Cost Relationship Specialty Start Date End Date Pcp, Not Required [address] [place] [phone] PCP - General 09/19/17 Additional Source Comments The information contained in this document represents components of the legal health record. It is not the complete legal health record.[facility]
== END 2025-03-06 19:29 | disposition home or self-care (01) ==
LOC: HO.MRI 19:28
PROVIDERS: Visit Provider Physician Assistant
DX: S46.212A Strain of muscle, fascia and tendon of other parts of biceps, left arm, initial encounter (principal)
CPT/HCPCS: 73221

== ENCOUNTER → 2025-03-06 19:33 | Outpatient (BNV) | payer OTHER, SELFPAY | PROVIDERS: Visit Provider Radiology Diagnostic Radiology | DX: S46.212A Strain of muscle, fascia and tendon of other parts of biceps, left arm, initial encounter (principal) | CPT/HCPCS: 73221 ==

== ENCOUNTER 2025-04-11 07:47 | Outpatient (REF) | payer BC, SELFPAY ==
--- OUTSIDE RECORDS SUMMARY | 2025-04-11 07:52 | XMS_ITS | Clinical Summary ---
Author Organization [employer] Address [address] [place] [address] 7t [place] [address] Care Team Providers Care Panama Hat Hydraulic Press Operator Name Role Phone Carlotta Barfield ISSAC Primary Care Provider [phone] Allergies No known active allergies Medications tiZANidine (Zanaflex) 2 MG tablet Take 1 tablet (2 mg) by mouth every 6 (six) hours if needed for muscle spasms for up to 10 days. 20 tablet 025 Active lisinopril-hydr oCHLOROthiazide 20-12.5 MG tabletIndicatio ns:Essential hypertension Take 1 tablet by mouth Once per day. 90 tablet 3 025 Active phentermine (Adipex-P) 37.5 MG tabletIndicatio ns:Class 3 severe obesity with serious comorbidity and body mass index (BMI) of 40.0 to 44.9 in adult, unspecified obesity type (HCC) Take 1 tablet (37.5 mg) by mouth before breakfast. 30 tablet 025 2024 Active Tirzepatide-Star ght Management (Zepbound) 2.5 MG/0.5ML solution auto-injectorIn dications:Morbi d obesity (CMS/HCC) (HCC),Class 3 severe obesity with serious comorbidity and body mass index (BMI) of 40.0 to 44.9 in adult, unspecified obesity type (HCC) INJECT 2.5 MG SUBCUTANEOUS EVERY 7 DAYS 2 mL 2 024 2024 Discontinued(F ormulary change) lisinopril-hydr oCHLOROthiazide 20-12.5 MG tabletIndicatio ns:Essential hypertension Take 1 tablet by mouth Once per day. 90 tablet 1 025 2024 Discontinued(R eorder (will not trigger notification to Pharmacy)) Active Problems Problem Noted Date Diagnosed Date [...] 07/16/2018 Lumbar back pain 07/16/2018 Morbid obesity (CMS/[facility]) 11/27/2017 Encounters Date Type Department Care Team Description 04/10/2025 Telephone [facility] [address] [place] [address] Carlotta Barfield ANP june04/01/2025 2:15 PM EDT Office Visit [facility] [address] [place] [address] Carlotta Barfield ANP Essential hypertension (Primary Dx); Class 3 severe obesity with serious comorbidity and body mass index (BMI) of 40.0 to 44.9 in adult, unspecified obesity type; Elevated hemoglobin A1c 04/01/2025 Telephone [facility] [address] [place] [address] Carlotta Barfield ANP 04/01/2025 Travel 03/31/2025 Telephone [facility] [address] [place] [address] Carlotta Barfield ANP chart prep from Last 3 Months Immunizations Immunization Administration [...] your housing situation today? I have griselda elizabet 12/18/[address] you li [...] Sign Reading Time Taken Comments Blood Pressure 128/80 04/01/2025 2:16 PM EDT Pulse 64 04/01/2025 2:16 PM EDT Temperature 37 C (98.6 F) 04/01/2025 2:16 PM EDT Respiratory Rate 20 04/01/2025 2:16 PM EDT Oxygen Saturation 99% 10/23/2024 3:07 PM EDT Inhaled Oxygen Concentration - - Weight 129 kg (284 lb) 04/01/2025 2:16 PM EDT Height 172.7 cm (5' 8 ) 04/01/2025 2:16 PM EDT Body Mass Index 43.18 04/01/2025 2:16 PM EDT Plan of Treatment Upcoming Encounters Date Type Department Care Team (Late st Contact Info) Description 07/01/2025 2:15 PM EST Office Visit [facility] [address] [place] [address] Carlotta Barfield, ANP [address] [place], [place] [phone] Health Maintenance Due Date Last Done Comments Family Planning (PISQ) 2001 HPV Vaccines (1 - Male 3-dos e series) 2001 COVID-19 Vaccine (2024-2 6 season) 2025 07/24/2021, 01/06/2021, 12/16/2020 Influenza Vaccine (#1) 2025 Depression Screening 05/17/2025 05/17/2024, 05/17/2024 Alcohol/Substance Use Screening 07/19/2025 07/19/2024 SDOH Screening 12/18/2025 12/18/2024 Disability Screening 12/27/2025 12/27/2024 Tobacco Screening 04/01/2026 04/01/2025 Lipid Panel 09/06/2028 09/06/2023, 03/09/2021 DTaP/Tdap/Td Vaccines [...] patient's age to complete this topic Hepatitis B Vaccines Discontinued IPV Vaccines Aged Out No longer eligi [...] 49) Years Aged Out No longer eligible based on [...] 8:58 AM EST) Triglycerides 70 <150 mg/dL [facility] Comment:Desirable Triglyceri de: less than 150 mg/dLBorderline High Triglyceride 150-199 mg/dLHigh Triglyceride: 200-499 mg/dLVery High Triglyceride: greater than or equal to 5OO mg/dL Cholesterol 171 <200 mg/dL [facility] Comment:Desirable Cholestero l: less than 200 mg/dLBorderline High Cholesterol: 200-239 mg/dLHigh Cholesterol: greater than 239 mg/dL LDL Cholesterol Calculated 109(H) <100 mg/dL [facility] Comment:Desirable LDL: less than 100 mg/dLNear Optimal/Above Optimal LDL: 110- 129 mg/dLBorderline High LDL: 130-159 mg/dLHigh LDL: 160-189 mg/dLVery High LDL: greater than or equal to 190 mg/dL HDL Cholesterol 48 >40 mg/dL [facility] Comment:Desirable HDL: great er than 40 mg/dL Note: This HDL assay may give artificially low results in patients with liver disease. Blood Venous blood specimen / Unknown 09/06/2023 8:58 AM EST 09/06/2023 11:09 AM EST Carlotta Barfield [facility] BLOOD ORDERABLES Final Resul t Performing Organization Address [facility] Co de Phone Number [facility] [address] [place] [phone] * Hepatitis C Antibody with Reflex to HCV, RNA, Quantitative, Real-Time PCR (09/06/2023 8:45 AM EST) Hepatitis C Antibody Nonreactive Nonreactive [facility] Comment:Antibodies to HCV no t detected; does not exclude early acuteHCV infection. Blood Venous blood specimen / Unknown 09/06/2023 8:45 AM EST 09/06/2023 11:09 AM EST Carlotta Barfield [facility] BLOOD ORDERABLES Final Resul t Performing Organization Address City/[facility] Co de Phone Number [facility] [address] [place] [phone] * HIV-1/2 Antigen and Antibodies, Fourth Generation, with Reflexes (09/06/2023 8:45 AM EST) HIV AB/AG Nonreactive Nonreactive [facility] Comment:HIV-1 p24 Ag and/or HIV-1/HIV-2 Ab not detected.A test result that is nonreactive does not exclude thepossibility of exposure to or infection with HIV-1 and/orHIV-2. Nonreactive results in this assay for individualswith prior exposure to HIV-1 and/or HIV-2 may be due toantigen and antibody levels that are below the limit ofdetection of this assay.The Locqus Alinity HIV Ag/Ab Combo assay result andsupplemental assay results should be interpreted inconjunction with the patient's clinical presentation,history and other laboratory results. If the results areinconsistent with clinical evidence, additional testing issuggested to confirm the result. Blood Venous blood specimen / Unknown 09/06/2023 8:45 AM EST 09/06/2023 11:09 AM EST [facility] LAB BLOOD ORDERABLES Final Resul t [facility] [address] [place] [phone] from Last 3 Months or Most Recently Relevant to Health Maintenance Insurance BCBS PPO GENERIC TPL Care Teams Panama Hat Hydraulic Press Operator Relationship Specialty Start Date End Date Carlotta Barfield ANP [address] [place] [phone] PCP - General Family Medicine 05/26/20
--- OUTSIDE RECORDS SUMMARY | 2025-04-11 07:52 | XMS_ITS | Encounter Summary ---
Author Organization [employer] Address [address] [facility] 7t [place] [address] Care Team Providers Care Integrity Analyst Name Role Phone Carlotta Barfield Primary Care Provider [phone] Encounter Details Date Type Department Care Team ([facility] st Contact Info) Description 06/13/2024 Orders Only [facility] [address] [place] [address] Carlotta Barfield ANP [address] [place] [address] Social History Tobacco Use Types Packs/Day Years [...] Description 07/01/2025 2:15 PM EST Office Visit [facility] [address] [place] [address] Carlotta Barfield ANP [address] [place] [address] documented as of this encounter Visit Diagnoses Not on filedocumented in this encounter Additional Health Concerns Assessment Noted Time PHQ-9 Depression Total Score: 4 05/17/20 24 2:06 PM EST documented as of this encounter Care Teams Integrity Analyst Relationship Specialty Start Date End Date Carlotta Barfield ANP [address] [place] [phone] PCP - General Family Medicine 05/26/20 documented as of this encounter
--- OUTSIDE RECORDS SUMMARY | 2025-04-11 07:52 | XMS_ITS | Clinical Summary ---
Author Organization [facility] Address [address] [place] [address] [place] [phone] Phone Support Name Relationship Address Phone Flaquita Bauer Personal Relationship [address] [place] [address] Danelle Jarvis Personal Relationship [address] [place] [address] Care Team Providers Care Ceo And Co Founder Name Role Phone Pcp, Not Required Primary [...] HIV ONE-TIME SCREENING (18-6 5 YEARS) 2004 INFLUENZA VACCINE (#1) 2025 COVID-19 VACCINE (2023-2 5 season) 2025 HEPATITIS A VACCINES Aged Out No [...] Address Personal/Family Self 1985 [address] [place] [address] [facility] C[employer] A[employer] [address] [place], [place] [address] [facility] [employer] A[employer] * Guarantor: Rahul Bolivar Account Type Relation to Patient Date of Phone Billing Address Personal/Family Self 1985 [address] [place] [address] [facility] C3 ACO * Guarantor: Rahul Bolivar Account Type Relation to Patient Date of Phone Billing Address Personal/Family Self 1985 [address] [place] [address] [facility] C[employer] A[employer] [facility] C[facility] * Guarantor: Rahul Bolivar Account Type Relation to Patient Date of Phone Billing Address Personal/Family Self 1985 [address] [place] [address] [facility] C3 A[employer] * Guarantor: Rahul Bolivar Account Type Relation to Patient Date of Phone Billing Address Personal/Family Self 1985 [address] [place] [address] [facility] C3 A[employer] * Guarantor: Rahul Bolivar Account Type Relation to Patient Date of Phone Billing Address Personal/Family Self 1985 [address] [place] [address] [facility] C3 ACO * Guarantor: Rahul Bolivar Account Type Relation to Patient Date of Phone Billing Address Personal/Family Self 1985 [address] [place] [address] [facility] [employer] Care Teams Ceo And Co Founder Relationship Specialty Start Date End Date Pcp, Not Required [address] [place] [phone] PCP - General 09/19/17 Additional Source Comments The information contained in this document represents components of the legal health record. It is not the complete legal health record.[facility]
--- OUTSIDE RECORDS SUMMARY | 2025-04-11 07:52 | XMS_ITS | Encounter Summary ---
Author Organization [employer] Address [address] [facility] 7t [place] [address] Care Team Providers Care Land Clearer Name Role Phone Carlotta Barfield ISSAC Primary Care Provider [phone] Reason for Visit * Reason Comments Med Refill Encounter Details Date Type Department Care Team ([facility] st Contact Info) Description 10/25/2024 Refill [facility] [address] [place] [phone] Adán Nobles MD [address] [place] [address] Social History Tobacco Use Types Packs/Day Years [...] Description 07/01/2025 2:15 PM EST Office Visit [facility] [address] [place] [address] Carlotta Barfield ANP [address] [place] [address] documented as of this encounter Visit Diagnoses Not on filedocumented in this encounter Additional Health Concerns Assessment Noted Time PHQ-9 Depression Total Score: 4 05/17/20 24 2:06 PM EST documented as of this encounter Care Teams Land Clearer Relationship Specialty Start Date End Date Carlotta Barfield ANP [address] [place] [phone] PCP - General Family Medicine 05/26/20 documented as of this encounter
--- OUTSIDE RECORDS SUMMARY | 2025-04-11 07:52 | XMS_ITS | Encounter Summary ---
Author Organization [employer] Address [address] [facility] 7t [place] [address] Care Team Providers Care Market Development Executive Name Role Phone Carlotta Barfield Primary Care Provider [phone] Reason for Visit * Reason Onset Date Comments june recall 04/10/2025 Encounter Details Date Type Department Care Team ([facility] Contact Info) Description 04/10/[address] [facility] [address] [place], [place] [phone] Carlotta Barfield ANP [address] [place] [address] june recall Social History Tobacco Use Types Packs/Day Years [...] is your housing situation today? I have girselda mcneal 12/18/[address] you [...] AM EDT documented as of this encounter Miscellaneous Notes * Telephone Encounter - Tiffani Osei [place] - 04/10/2025 12:11 PM EDT Telephone call to patient to schedule the following recall: Visit type: Follow up Appointment notes: weight f/u Patient agree to appointment on 07/01/2025 at 2:15 PM with Lico. documented in this encounter Plan of Treatment Upcoming Encounters Date Type Department Care Team (Late st Contact Info) Description 07/01/2025 2:15 PM EST Office Visit [facility] [address] [place] [phone] Carlotta Barfield ANP [address] [place] [address] documented as of this encounter Visit Diagnoses Not on filedocumented in this encounter Additional Health Concerns Assessment Noted Time PHQ-9 Depression Total Score: 4 05/17/20 24 2:06 PM EST documented as of this encounter Care Teams Market Development Executive Relationship Specialty Start Date End Date Carlotta Barfield ANP [address] [place] [phone] PCP - General Family Medicine 05/26/20 documented as of this encounter
[2025-04-11 08:41] LABS: Hemoglobin A1C 152.4385 umol/L; Total Hemoglobin (HGBA1C) 3724.8248 umol/L
[2025-04-11 08:59] LABS: Alanine Aminotransferase 36 U/L (0-40); Albumin Level 4.9 g/dL (3.5-5.0); Alkaline Phosphatase 78 U/L (39-117); Anion Gap 13 (12-20); Aspartate Amino Transferase 31 U/L (5-37); Blood Urea Nitrogen 16 mg/dL (9-16); Calcium 9.7 mg/dL (8.4-10.2); Carbon Dioxide 26 mmol/L (22-29); Chloride 105 mmol/L (96-108); Cholesterol 163 mg/dL (<200); Estimated Glomerular Filt Rate > 60; HDL Cholesterol 34 mg/dL (>40); Potassium 4.5 mmol/L (3.3-5.1); Sodium 139 mmol/L (135-145); Total Protein 8.3 g/dL (6.5-8.0); Triglycerides 71 mg/dL (<150)
[2025-04-11 09:39] LABS: Microalbum/Creatinine Ratio Ur 3.7 ug/mg cr (<30)
== END 2025-04-11 07:48 | disposition home or self-care (01) ==
LOC: HO.LAB 07:47
PROVIDERS: PCP Nurse Practitioner Primary Care; Visit Provider Nurse Practitioner Primary Care
DX: I10 Essential (primary) hypertension (principal); M75.22 Bicipital tendinitis, left shoulder; E66.813 Obesity, class 3; Z68.41 Body mass index [BMI] 40.0-44.9, adult; R73.09 Other abnormal glucose
CPT/HCPCS: 36415; 80048; 80061; 80076; 82043; 82570; 83036; 99212

== ENCOUNTER 2025-04-11 12:59 | Outpatient (AMB) | payer OTHER, SELFPAY ==
--- NOTE | 2025-04-11 13:11 | A.OFFVIS_ITS ---
Intake Visit Reasons: OV - left elbow MRI review Intake Note: Rahul is a 39 year old male who presents today for a MRI review of his left elbow. Accountant Clerk Required: Yes Accountant Clerk Services: Accountant Clerk Present Accountant Clerk Name: Hank ID#[id number] Allergies No Known Allergies (No Known Allergies*) Allergy (Verified 04/11/25 13:14) HPI HPI OV - left elbow MRI review: Details: Mr. Paz Bolivar is a 39-year-old male who presents to the office today for left elbow MRI review. He reports that he continues to have some stiffness and mild discomfort in the left elbow. He has continued to work since his injury. [facility] Medical History Obese Social History (Updated 04/11/25 @ 13:15 by CORIN [place]) Alcohol intake: never Current occupation: right hand dominant Review of Systems Const All systems reviewed & are unremarkable except as noted in HPI and below Physical Exam Const General: cooperative, healthy appearing and no acute distress Resp Effort & Inspection: normal respiratory effort and able to speak in complete sentences Extrem Other: Left elbow: Normal to inspection. No ecchymosis, erythema, or edema. No tenderness to palpation over the olecranon. No tenderness to the medial or lateral epicondyle. 5/5 strength with resisted pronation and supination. No evidence of Chandler deformity. NVI. Psych Appearance: grossly normal Mental Status: mental status grossly normal Attitude: cooperative Assessment & Plan Assessment & Plan (1) Biceps tendonitis on left: Code(s): M75.22 - Bicipital tendinitis, left shoulder Category: Medical Plan Mr. Paz Bolivar is a 39-year-old male who presents to the office today for left elbow MRI review. He reports that he continues to have some stiffness and mild discomfort in the left elbow. He has continued to work since his injury. While in the office today, we discussed the left elbow MRI findings from 03/07/2025 which were negative for any tendon rupture or tearing. I discussed that there is no surgical indication needed at this time and have recommended physical therapy which the patient is amenable to attend. He will continue to work full-time regular duty. I will see him back in 4-6 weeks after physical therapy, sooner if needed. Coding Level of Care Code Est Pt Level 3 (30427) Diagnoses Biceps tendonitis on left M75.22
== END 2025-04-11 13:23 | disposition home or self-care (01) ==
PROVIDERS: PCP Nurse Practitioner Primary Care; Visit Provider Physician Assistant
DX: M75.22 Bicipital tendinitis, left shoulder (principal)
CPT/HCPCS: 99213